=== PATIENT | female | born 1930 | race Caucasian/White ===

== ENCOUNTER 2019-01-12 19:50 | Inpatient (IN) ==
[2019-01-12] MEDS ORDERED: Lidocaine 1% 20 ML MDV INFILT STA (20:08)
[2019-01-12] MEDS ORDERED: *HR* Propofol 200 MG/20 ML VIAL IVP ONE (21:15)
[2019-01-12] MEDS ORDERED: 0.9 % Sodium Chloride 1,000 ML ONE (21:26)
[2019-01-12 22:03] LABS: Basophils % 0.1 %; Eosinophils # 0.1 K/mcL (0.0-0.6); Eosinophils % 0.3 %; Hematocrit 32.4 % (35.3-44.9); Hemoglobin 10.9 g/dL (11.5-15.4); Immature Granulocytes % 0.5 % (0-4); Lymphocytes # 1.1 K/mcL (0.6-4.6); Lymphocytes % 6.8 %; Mean Corpuscular HGB Conc 33.6 g/dL (31.6-35.5); Mean Corpuscular Hemoglobin 31.9 pg (28.0-33.3); Mean Corpuscular Volume 94.7 fL (83.0-100.0); Mean Platelet Volume 9.2 fL (9.4-12.4); Monocytes # 0.9 K/mcL (0.0-1.3); Monocytes % 5.6 %; Neutrophils # 13.4 K/mcL (1.6-8.9); Platelet Count 274 K/mcL (140-400); Red Blood Count 3.42 M/mcL (3.82-4.97); Red Cell Distribution Width 13.8 % (11.5-14.5); Segmented Neutrophils % 86.7 %; White Blood Count 15.5 K/mcL (4.3-11.1)
[2019-01-12 22:22] LABS: BUN/Creatinine Ratio 60 (6-26); Blood Urea Nitrogen 29 mg/dL (8-23); Calcium 8.7 mg/dL (8.6-10.3); Carbon Dioxide 26 mEq/L (23-29); Chloride 101 mEq/L (98-107); Glucose 214 mg/dL (70-105); Osmolality,Calculated 294 (280-300); Potassium 3.5 mEq/L (3.5-5.1); Sodium 136 mEq/L (136-145); eGFR For African Americans > 60 (> 60); eGFR For Non-African Americans > 60 (> 60)
[2019-01-12 22:23] LABS: Troponin I < 0.03 ng/mL (< 0.04)
[2019-01-12] MEDS ORDERED: cefTRIAXone 1,000 MG in Water for inj. (sterile) 10 ML IVP ONE (22:40)
[2019-01-12] MEDS ORDERED: Azithromycin 500 MG in 0.9 % Sodium Chloride 250 ML IVPB ONE (22:41)
[2019-01-12] MEDS ORDERED: Cefepime HCl 1,000 MG in 0.9 % Sodium Chloride Mini Bag 100 ML IVPB STA (23:17)
[2019-01-13 00:17] LABS: Bilirubin,Urine Negative (Negative); Blood,Urine Negative (Negative); Clarity,Urine Turbid (Clear); Color,Urine Yellow (Yellow); Glucose,Urine (UA) Normal (Normal); Ketones,Urine Negative (Negative); Leukocyte Esterase,Urine Large (Negative); Nitrite,Urine Positive (Negative); Protein,Urine 100 mg/dL (Neg-Trace); Specific Gravity,Urine 1.023 (1.010-1.025); Urobilinogen,Urine Normal (Normal)
[2019-01-13 00:20] LABS: Bacteria,Urine Many per hpf (None-Few); Hyaline Casts,Urine Few per lpf (None-Few); RBC,Urine 0-3 per hpf (0-3); Squamous Epithelial Cell,Urine Many per lpf (None-Few); WBC,Urine TNTC per hpf (0-3)
[2019-01-13] MEDS ORDERED: *HR* LORazepam 0.5 MG TABLET PO PRN (02:44)
[2019-01-13] MEDS ORDERED: Bisacodyl 10 MG RECTAL SUPPOSITORY RC PRN (02:44)
[2019-01-13] MEDS ORDERED: ACETAMINOPHEN PO PRN (02:44)
[2019-01-13] MEDS ORDERED: Ipratropium/Albuterol Neb 3 ML IH PRN (02:49)
[2019-01-13] MEDS: Ipratropium/Albuterol Neb 3 ML IH SCH ×3 (03:48→11:16)
[2019-01-13] MEDS ORDERED: Ringers Solution, Lactated 1,000 ML IVC SCH (04:45)
[2019-01-13] MEDS: *HR* Heparin 5,000 UNIT/ML VIAL SQ SCH ×3 (08:19→23:55)
[2019-01-13] MEDS: Piperacillin/Tazobactam 3.375 GM in 0.9 % Sodium Chloride Mini Bag 100 ML IVPB SCH ×3 (08:36→23:55)
[2019-01-13] MEDS: Furosemide 20 MG TABLET PO SCH ×2 (08:37→09:47)
[2019-01-13] MEDS: Aspirin Enteric Coated 81 MG Tablet PO SCH ×2 (08:37→09:47)
[2019-01-13] MEDS: Cholestyramine 4 GM POWD.PACK PO SCH ×3 (08:38→15:49)
[2019-01-13] MEDS ORDERED: Venlafaxine XR (24 HR) 75 MG CAP.ER.24H PO SCH (09:00)
[2019-01-13] MEDS ORDERED: *HR* Metoprolol 5 MG/5 ML VIAL IVP PRN (14:50)
[2019-01-13] MEDS: OLANZapine 5 MG TAB.RAPDIS PO SCH (23:54)
[2019-01-13] MEDS: traZODone 50 MG TABLET PO SCH (23:55)
[2019-01-14] MEDS: *HR* Heparin 5,000 UNIT/ML VIAL SQ SCH ×3 (06:39→22:05)
[2019-01-14 07:21] LABS: Basophils % 0.4 %; Eosinophils # 0.1 K/mcL (0.0-0.6); Eosinophils % 1.4 %; Hematocrit 36.1 % (35.3-44.9); Hemoglobin 11.9 g/dL (11.5-15.4); Immature Granulocytes % 0.7 % (0-4); Lymphocytes # 1.3 K/mcL (0.6-4.6); Lymphocytes % 12.2 %; Mean Corpuscular Hemoglobin 32.2 pg (28.0-33.3); Mean Corpuscular Volume 97.6 fL (83.0-100.0); Mean Platelet Volume 9.9 fL (9.4-12.4); Monocytes # 0.4 K/mcL (0.0-1.3); Monocytes % 3.5 %; Neutrophils # 8.4 K/mcL (1.6-8.9); Platelet Count 296 K/mcL (140-400); Segmented Neutrophils % 81.8 %; White Blood Count 10.3 K/mcL (4.3-11.1)
[2019-01-14 07:40] LABS: BUN/Creatinine Ratio 44 (6-26); Blood Urea Nitrogen 27 mg/dL (8-23); Calcium 8.7 mg/dL (8.6-10.3); Carbon Dioxide 25 mEq/L (23-29); Chloride 104 mEq/L (98-107); Glucose 208 mg/dL (70-105); Magnesium 1.7 mg/dL (1.6-2.6); Osmolality,Calculated 293 (280-300); Phosphorous 2.8 mg/dL (2.7-4.5); Potassium 4.2 mEq/L (3.5-5.1); Sodium 136 mEq/L (136-145); eGFR For African Americans > 60 (> 60); eGFR For Non-African Americans > 60 (> 60)
[2019-01-14] MEDS: Piperacillin/Tazobactam 3.375 GM in 0.9 % Sodium Chloride Mini Bag 100 ML IVPB SCH ×2 (08:15→15:48)
[2019-01-14] MEDS ORDERED: *HR* Succinylcholine 200 MG/10 ML VIAL IVP ONE (10:08)
[2019-01-14] MEDS ORDERED: Lidocaine -MPF 2% 2 ML VIAL ONE (10:08)
[2019-01-14] MEDS ORDERED: Ondansetron 4 MG/2 ML VIAL ONE (10:08)
[2019-01-14] MEDS ORDERED: Lidocaine -MPF 4% 5 ML AMPUL ONE (10:08)
[2019-01-14] MEDS ORDERED: Dexamethasone 4 MG/ML VIAL ONE (10:08)
[2019-01-14] MEDS ORDERED: *HR* FentaNYL (PF) 100 MCG/2 ML VIAL ONE (10:11)
[2019-01-14] MEDS ORDERED: *HR* Propofol 200 MG/20 ML VIAL IVP ONE (10:11)
[2019-01-14] MEDS ORDERED: Morphine Sulfate 2 MG/ML SYRINGE IVP PRN (10:47)
[2019-01-14] MEDS ORDERED: *HR* OxyCODONE Immed Rel 5 MG TABLET PO PRN (10:47)
[2019-01-14] MEDS ORDERED: Ondansetron 4 MG/2 ML VIAL IVP ONE (10:47)
[2019-01-14] MEDS ORDERED: *HR* Promethazine 25 MG/ML VIAL IVP PRN (10:47)
[2019-01-14] MEDS: Furosemide 20 MG TABLET PO SCH (13:08)
[2019-01-14] MEDS: Aspirin Enteric Coated 81 MG Tablet PO SCH (13:09)
[2019-01-14] MEDS: Cholestyramine 4 GM POWD.PACK PO SCH ×2 (13:40→15:44)
[2019-01-14 14:25] LABS: Source of Body Fluid LUL BAL; Source of Body Fluid RLL BAL; Source of Body Fluid RML BAL
[2019-01-14 15:08] LABS: Appearance of Body Fluid Cloudy (Clear); Volume of Body Fluid 15 mL; Volume of Body Fluid 9 mL
[2019-01-14 15:13] LABS: Appearance of Body Fluid Cloudy (Clear); Volume of Body Fluid 10 mL
[2019-01-14] MEDS: *HR* OxyCODONE Immed Rel 5 MG TABLET PO PRN (15:52)
[2019-01-14] MEDS ORDERED: *HR* Dextrose 50 % in Water (Syg) 50 ML SYRINGE IVP PRN (19:57)
[2019-01-14] MEDS ORDERED: D5% in Water 1,000 ML IVC PRN (19:57)
[2019-01-14] MEDS ORDERED: Dextrose Gel 15 GM/37.5 ML TUBE PO PRN ×2 (19:57)
[2019-01-14] MEDS: Insulin LISPRO 300 UNITS/3 ML VIAL SQ SCH (22:04)
[2019-01-14] MEDS: traZODone 50 MG TABLET PO SCH (22:05)
[2019-01-14] MEDS: OLANZapine 5 MG TAB.RAPDIS PO SCH (22:06)
[2019-01-15] MEDS: Piperacillin/Tazobactam 3.375 GM in 0.9 % Sodium Chloride Mini Bag 100 ML IVPB SCH ×3 (00:23→14:28)
[2019-01-15] MEDS: *HR* OxyCODONE Immed Rel 5 MG TABLET PO PRN ×2 (00:24→14:27)
[2019-01-15] MEDS: *HR* Heparin 5,000 UNIT/ML VIAL SQ SCH ×3 (07:03→21:13)
[2019-01-15] MEDS: Cholestyramine 4 GM POWD.PACK PO SCH ×2 (07:58→17:41)
[2019-01-15] MEDS: Furosemide 20 MG TABLET PO SCH (07:58)
[2019-01-15] MEDS: Aspirin Enteric Coated 81 MG Tablet PO SCH (07:58)
[2019-01-15] MEDS: Insulin LISPRO 300 UNITS/3 ML VIAL SQ SCH ×4 (08:45→21:13)
[2019-01-15 16:00] LABS: Basophils % 0.3 %; Eosinophils # 0.1 K/mcL (0.0-0.6); Hematocrit 34.6 % (35.3-44.9); Hemoglobin 11.1 g/dL (11.5-15.4); Immature Granulocytes % 0.8 % (0-4); Lymphocytes # 2.6 K/mcL (0.6-4.6); Lymphocytes % 24.1 %; Mean Corpuscular HGB Conc 32.1 g/dL (31.6-35.5); Mean Corpuscular Hemoglobin 32.6 pg (28.0-33.3); Mean Corpuscular Volume 101.5 fL (83.0-100.0); Mean Platelet Volume 9.2 fL (9.4-12.4); Monocytes # 0.8 K/mcL (0.0-1.3); Neutrophils # 7.1 K/mcL (1.6-8.9); Platelet Count 276 K/mcL (140-400); Red Blood Count 3.41 M/mcL (3.82-4.97); Red Cell Distribution Width 13.7 % (11.5-14.5); Segmented Neutrophils % 66.8 %; White Blood Count 10.7 K/mcL (4.3-11.1)
[2019-01-15 16:37] LABS: BUN/Creatinine Ratio 36 (6-26); Blood Urea Nitrogen 25 mg/dL (8-23); Calcium 8.3 mg/dL (8.6-10.3); Carbon Dioxide 24 mEq/L (23-29); Chloride 103 mEq/L (98-107); Glucose 178 mg/dL (70-105); Magnesium 1.6 mg/dL (1.6-2.6); Osmolality,Calculated 291 (280-300); Potassium 3.8 mEq/L (3.5-5.1); Sodium 136 mEq/L (136-145); eGFR For African Americans > 60 (> 60); eGFR For Non-African Americans > 60 (> 60)
[2019-01-15] MEDS: OLANZapine 5 MG TAB.RAPDIS PO SCH (21:12)
[2019-01-15] MEDS: traZODone 50 MG TABLET PO SCH (21:12)
[2019-01-16] MEDS: Piperacillin/Tazobactam 3.375 GM in 0.9 % Sodium Chloride Mini Bag 100 ML IVPB SCH ×3 (01:05→16:49)
[2019-01-16] MEDS: *HR* Heparin 5,000 UNIT/ML VIAL SQ SCH ×3 (06:00→21:51)
[2019-01-16 06:22] LABS: Basophils # 0.1 K/mcL (0.0-0.2); Basophils % 0.5 %; Eosinophils # 0.3 K/mcL (0.0-0.6); Eosinophils % 2.9 %; Hematocrit 36.4 % (35.3-44.9); Hemoglobin 12.2 g/dL (11.5-15.4); Immature Granulocytes % 1.2 % (0-4); Lymphocytes # 2.8 K/mcL (0.6-4.6); Lymphocytes % 26.3 %; Mean Corpuscular HGB Conc 33.5 g/dL (31.6-35.5); Mean Corpuscular Hemoglobin 32.8 pg (28.0-33.3); Mean Corpuscular Volume 97.8 fL (83.0-100.0); Mean Platelet Volume 9.2 fL (9.4-12.4); Monocytes # 0.7 K/mcL (0.0-1.3); Monocytes % 6.2 %; Neutrophils # 6.6 K/mcL (1.6-8.9); Platelet Count 268 K/mcL (140-400); Red Blood Count 3.72 M/mcL (3.82-4.97); Red Cell Distribution Width 13.6 % (11.5-14.5); Segmented Neutrophils % 62.9 %; White Blood Count 10.5 K/mcL (4.3-11.1)
[2019-01-16 06:57] LABS: BUN/Creatinine Ratio 31 (6-26); Blood Urea Nitrogen 22 mg/dL (8-23); Calcium 8.2 mg/dL (8.6-10.3); Carbon Dioxide 26 mEq/L (23-29); Chloride 101 mEq/L (98-107); Glucose 124 mg/dL (70-105); Magnesium 1.6 mg/dL (1.6-2.6); Osmolality,Calculated 281 (280-300); Potassium 3.9 mEq/L (3.5-5.1); Sodium 133 mEq/L (136-145); eGFR For African Americans > 60 (> 60); eGFR For Non-African Americans > 60 (> 60)
[2019-01-16] MEDS: Cholestyramine 4 GM POWD.PACK PO SCH ×2 (10:14→16:49)
[2019-01-16] MEDS: Aspirin Enteric Coated 81 MG Tablet PO SCH (10:15)
[2019-01-16] MEDS: Furosemide 20 MG TABLET PO SCH (10:15)
[2019-01-16] MEDS: Insulin LISPRO 300 UNITS/3 ML VIAL SQ SCH ×4 (10:16→21:42)
[2019-01-16] MEDS ORDERED: *HR* Propofol 200 MG/20 ML VIAL IVP ONE (13:15)
[2019-01-16] MEDS ORDERED: E-Z-PAQUE (BARIUM SULF) SUSP 1 BOTTLE PO ONE (15:28)
[2019-01-16] MEDS ORDERED: E-Z-HD (BARIUM SULF) SUSPENSION PO ONE (15:28)
[2019-01-16] MEDS: traZODone 50 MG TABLET PO SCH (21:50)
[2019-01-16] MEDS: OLANZapine 5 MG TAB.RAPDIS PO SCH (21:50)
[2019-01-17] MEDS: *HR* Heparin 5,000 UNIT/ML VIAL SQ SCH (05:59)
[2019-01-17] MEDS ORDERED: Piperacillin/Tazobactam 3.375 GM in 0.9 % Sodium Chloride Mini Bag 100 ML IVPB SCH ×2 (06:00→16:00)
[2019-01-17 06:31] LABS: Basophils # 0.1 K/mcL (0.0-0.2); Basophils % 0.7 %; Eosinophils # 0.2 K/mcL (0.0-0.6); Eosinophils % 1.9 %; Hematocrit 38.8 % (35.3-44.9); Hemoglobin 12.9 g/dL (11.5-15.4); Immature Granulocytes % 1.8 % (0-4); Lymphocytes # 2.6 K/mcL (0.6-4.6); Lymphocytes % 22.5 %; Mean Corpuscular HGB Conc 33.2 g/dL (31.6-35.5); Mean Corpuscular Volume 96.3 fL (83.0-100.0); Mean Platelet Volume 9.2 fL (9.4-12.4); Monocytes # 0.6 K/mcL (0.0-1.3); Monocytes % 5.2 %; Neutrophils # 7.8 K/mcL (1.6-8.9); Platelet Count 252 K/mcL (140-400); Red Blood Count 4.03 M/mcL (3.82-4.97); Red Cell Distribution Width 13.5 % (11.5-14.5); Segmented Neutrophils % 67.9 %; White Blood Count 11.4 K/mcL (4.3-11.1)
[2019-01-17 07:01] LABS: BUN/Creatinine Ratio 34 (6-26); Blood Urea Nitrogen 23 mg/dL (8-23); Calcium 8.5 mg/dL (8.6-10.3); Carbon Dioxide 25 mEq/L (23-29); Chloride 98 mEq/L (98-107); Glucose 164 mg/dL (70-105); Magnesium 1.7 mg/dL (1.6-2.6); Osmolality,Calculated 281 (280-300); Phosphorous 3.6 mg/dL (2.7-4.5); Potassium 3.7 mEq/L (3.5-5.1); Sodium 132 mEq/L (136-145); eGFR For African Americans > 60 (> 60); eGFR For Non-African Americans > 60 (> 60)
[2019-01-17 08:12] VITALS: BP 116/73
[2019-01-17] MEDS: Furosemide 20 MG TABLET PO SCH (10:06)
[2019-01-17] MEDS: Cholestyramine 4 GM POWD.PACK PO SCH (10:07)
[2019-01-17] MEDS: Aspirin Enteric Coated 81 MG Tablet PO SCH (10:07)
[2019-01-17] MEDS: Insulin LISPRO 300 UNITS/3 ML VIAL SQ SCH (10:07)
[2019-01-17] MEDS ORDERED: Amoxicillin/Clavulanate 500 MG TABLET PO SCH (17:00)
[2019-01-17] MEDS ORDERED: Doxycycline 100 MG CAPSULE PO SCH (18:00)
[2019-01-18 14:47] LABS: HSV Source BAL LUL; HSV Source BAL RLL; HSV Source BAL RML
== END 2019-01-17 10:47 | DRG 177 ==
LOC: 2ANU 19:50 → EMEROOARM 19:50 → 2ANU 01-13 03:27
PROVIDERS: ADMIT Internal Medicine; ATTEND Internal Medicine
PROC: ENDOEDS (2019-01-16 13:00)

== ENCOUNTER 2019-01-23 12:49 | Observation (INO) ==
[2019-01-23] MEDS ORDERED: Ipratropium/Albuterol Neb 3 ML IH ONE (12:56)
[2019-01-23] MEDS ORDERED: methylPREDNISolone 125 MG/2 ML VIAL IVP ONE (12:56)
[2019-01-23] MEDS ORDERED: Isovue-370 500 ML BOTTLE IVP ONE (12:57)
[2019-01-23 13:05] LABS: ABG Base Excess -7 mEq/L (-2 to 3); ABG HCO3 16 mEq/L (21-27); ABG Oxygen Saturation 99 % (95-98); ABG PCO2 27 mmHg (35-45); ABG PH 7.39 pH Units (7.32-7.45); ABG PO2 114 mmHg (85-104); ABG TCO2 17 mEq/L (20-26)
[2019-01-23] MEDS ORDERED: 0.9 % Sodium Chloride 1,000 ML IVC ONE ×2 (13:08→13:32)
[2019-01-23 13:17] LABS: Hematocrit 44.3 % (35.3-44.9); Hemoglobin 14.2 g/dL (11.5-15.4); Mean Corpuscular HGB Conc 32.1 g/dL (31.6-35.5); Mean Corpuscular Hemoglobin 32.7 pg (28.0-33.3); Mean Corpuscular Volume 102.1 fL (83.0-100.0); Mean Platelet Volume 10.4 fL (9.4-12.4); Platelet Count 308 K/mcL (140-400); Red Blood Count 4.34 M/mcL (3.82-4.97); Red Cell Distribution Width 14.9 % (11.5-14.5)
[2019-01-23 13:21] LABS: White Blood Count 39.8 K/mcL (4.3-11.1)
[2019-01-23] MEDS ORDERED: Piperacillin/Tazobactam 3.375 GM in Water for inj. (sterile) 20 ML IVP ONE (13:32)
[2019-01-23] MEDS ORDERED: Piperacillin/Tazobactam 3.375 GM in 0.9 % Sodium Chloride Mini Bag 100 ML IVPB ONE (13:40)
[2019-01-23 13:53] LABS: Albumin 3.4 g/dL (3.5-5.7); Albumin/Globulin Ratio 0.8 (1.1-2.2); Bilirubin,Direct 0.3 mg/dL (0.0-0.2); Bilirubin,Indirect 0.5 mg/dL (0.0-1.0); Bilirubin,Total 0.8 mg/dL (0.3-1.0); Calcium 9.4 mg/dL (8.6-10.3); Globulin 4.3 g/dL (2.4-3.5); Potassium 4.1 mEq/L (3.5-5.1); Total Protein 7.7 g/dL (6.4-8.9); Troponin I 0.14 ng/mL (< 0.04)
[2019-01-23 14:13] LABS: Lymphocytes # 0.8 K/mcL (0.6-4.6); Monocytes # 0.8 K/mcL (0.0-1.3); Neutrophils # 38.2 K/mcL (1.6-8.9); Platelet Estimate Normal (Normal)
[2019-01-23] MEDS ORDERED: Lidocaine 1% 20 ML MDV INFILT ONE (14:46)
[2019-01-23 15:26] LABS: Bilirubin,Urine Negative (Negative); Blood,Urine Moderate (Negative); Clarity,Urine Turbid (Clear); Color,Urine Yellow (Yellow); Glucose,Urine (UA) 100 mg/dL (Normal); Ketones,Urine Negative (Negative); Leukocyte Esterase,Urine Large (Negative); Nitrite,Urine Negative (Negative); Protein,Urine 100 mg/dL (Neg-Trace); Specific Gravity,Urine 1.014 (1.010-1.025); Urobilinogen,Urine Normal (Normal)
[2019-01-23 15:29] LABS: Bacteria,Urine None Seen per hpf (None-Few); Hyaline Casts,Urine Few per lpf (None-Few); RBC,Urine 15-30 per hpf (0-3); Squamous Epithelial Cell,Urine Many per lpf (None-Few); WBC,Urine TNTC per hpf (0-3)
[2019-01-23 15:39] LABS: Yeast,Urine Few per hpf (None Seen)
[2019-01-23 15:40] LABS: Calcium Oxalate Crystals,Urine Present
[2019-01-23] MEDS ORDERED: Milk and Molasses Enema 200 ML RC ONE (17:08)
[2019-01-23] MEDS ORDERED: Naloxone 0.4 MG/ML INJ IVP PRN (17:48)
[2019-01-23] MEDS ORDERED: Acetaminophen 325 MG TABLET PO PRN (18:23)
[2019-01-23] MEDS ORDERED: OLANZapine 5 MG TAB.RAPDIS PO SCH (21:00)
[2019-01-23] MEDS ORDERED: traZODone 50 MG TABLET PO SCH (21:00)
[2019-01-23] MEDS: Ipratropium/Albuterol Neb 3 ML IH PRN (21:35)
[2019-01-24] MEDS ORDERED: Acetaminophen IV 1,000 MG/100 ML INFUS..BTL IVPB ONE (00:47)
[2019-01-24] MEDS ORDERED: Insulin LISPRO 300 UNITS/3 ML VIAL SQ SCH ×3 (00:52→07:30)
[2019-01-24] MEDS ORDERED: D5% in Water 1,000 ML IVC PRN (00:52)
[2019-01-24] MEDS ORDERED: *HR* Dextrose 50 % in Water (Syg) 50 ML SYRINGE IVP PRN (00:52)
[2019-01-24] MEDS ORDERED: Dextrose Gel 15 GM/37.5 ML TUBE PO PRN ×2 (00:52)
[2019-01-24] MEDS ORDERED: Piperacillin/Tazobactam 3.375 GM in 0.9 % Sodium Chloride Mini Bag 100 ML IVPB SCH ×2 (02:00→09:00)
[2019-01-24] MEDS: Ipratropium/Albuterol Neb 3 ML IH PRN ×2 (02:05→07:11)
[2019-01-24] MEDS: Insulin LISPRO 300 UNITS/3 ML VIAL SQ SCH ×2 (02:08→05:54)
[2019-01-24] MEDS ORDERED: Furosemide 20 MG TABLET PO SCH (06:00)
[2019-01-24] MEDS ORDERED: Aspirin Enteric Coated 81 MG Tablet PO SCH (09:00)
[2019-01-24] MEDS ORDERED: 0.9 % Sodium Chloride 1,000 ML IVC SCH (10:00)
[2019-01-24 10:44] VITALS: BP 89/55
[2019-01-24] MEDS ORDERED: Glycopyrrolate 0.2 MG/ML VIAL IVP ONE (10:55)
[2019-01-24] MEDS ORDERED: *HR* FentaNYL (PF) 100 MCG/2 ML VIAL IVP ONE (10:55)
[2019-01-24] MEDS ORDERED: Atropine Sulfate 1% 40 DROP/2 ML BOTTLE SL PRN (10:59)
[2019-01-24] MEDS ORDERED: *HR* LORazepam 2 MG/ML VIAL IVP PRN (11:00)
[2019-01-24] MEDS ORDERED: *HR* LORazepam 2 MG/ML VIAL IVP ONE (11:01)
[2019-01-24] MEDS ORDERED: *HR* FentaNYL (PF) 100 MCG/2 ML VIAL IVP PRN (11:02)
== END 2019-01-24 11:33 | disposition expired ==
LOC: 2ANU 12:49 → EMEROOARM 12:49 → 2ANU 18:45
PROVIDERS: ADMIT Internal Medicine; ATTEND Internal Medicine